=== PATIENT | female | born 1960 | race Caucasian/White ===

== ENCOUNTER 2024-12-14 18:54 | Outpatient (REF) | payer MEDICARE, SELFPAY | END 2024-12-14 18:55 | disposition home or self-care (01) | LOC: HO.HHCLNP 18:54 | PROVIDERS: Visit Provider Family Medicine | DX: Z12.4 Encounter for screening for malignant neoplasm of cervix (principal) | CPT/HCPCS: 87626; 88175 ==

== ENCOUNTER 2024-12-29 14:31 | Outpatient (REF) | payer MEDICARE, SELFPAY ==
--- OUTSIDE RECORDS SUMMARY | 2024-12-29 16:49 | XMS_ITS | Encounter Summary ---
Author Organization [employer] Address [address] 7[address] [place] [address] Care Team Providers Care Welder Repair Name Role Phone Nasreen Salgado MD Primary Care Provider [phone] Encounter Details Date Type Department Care Team (Late st Contact Info) Description 12/15/2024 Orders Only [facility] CHC MED & PEDS [address] [place], [place] [phone] Provider, MD Delmer Social History Tobacco Use Types Packs/Day Years Used Date Smoking Tobacco: Never Smokeless Tobacco: Never Alcohol Use Standard Drinks/Week Comments Defer 0 (1 standard drink = 0.6 oz pur e alcohol) Depression Answer Date Recorded Patient Health Questionnaire-9 Score 22 11/24/2024 Patient Health Questionnaire-9 Score 22 11/24/2024 Last PHQ-9: Questionnaire Data Not on file 0 11/24/2024 Housing Stability Answer Date Recorded What is your housing situation today? I have lori heredia 11/24/[address] you li ve. Do you have problems with any of the following? None of the above 11/24/2024 Food Insecurity Answer Date Recorded Within the past 12 months, y ou worried that your food would run out before you got money to buy more: Never True 11/24/2024 Within the past 12 months,th e food you bought just didn't last and you didn't have enough money to get more: Never True Transportation Answer Date Recorded In the past 12 months, has l ack of transportation kept you from medical appts, meetings, work or from getting things needed for daily living? No 11/24/2024 Utilities Answer Date Recorded In the past 12 months, has t he electric, gas, oil or water company threatened to shut off services in your home? No 11/24/2024 Depression Answer Date Recorded Patient Health Questionnaire-2 Score 6 11/24/2024 Internet Access Answer Date Recorded Internet Access Q1 No 11/24/2024 Internet Access Q2 I do not want or need it 10/28 Comments No Sex and Gender Information Value Date Recorded Sex Assigned at Female 07/30/2024 3:23 PM EDT Legal Sex Female 3:22 PM EDT Gender Identity Female 11/24/2024 9:00 AM EDT Sexual Orientation Straight 11/24/2024 9: 01 AM EDT documented as of this encounter Plan of Treatment Upcoming Encounters Date Type Department Care Team (Late st Contact Info) Description 01/11/2025 10:45 AM EDT Office Visit [facility] CHC MED & PEDS [address] [place] [address] Nasreen Salgado MD [address] [place] [address] documented as of this encounter Procedures Procedure Name Priority Date/Time Associated Diagnosis Comments SURGICAL PATHOLOGY Routine 11/10/2023 9:00 AM EDT documented in this encounter Results * Surgical Pathology (11/10/2023 9:00 AM EDT) us Historical Provider LAB PATHOLOGY ORDERABLES Final Result documented in this encounter Visit Diagnoses Not on filedocumented in this encounter Additional Health Concerns Assessment Noted Time PHQ-9 Depression Total Score: 22 025 9:47 AM EDT documented as of this encounter Care Teams Welder Repair Relationship Specialty Start Date End Date Nasreen Salgado MD [address] [place] [address] PCP - General Family Medicine 11/24/24 documented as of this encounter
--- OUTSIDE RECORDS SUMMARY | 2024-12-29 16:49 | XMS_ITS | Encounter Summary ---
Author Organization [employer] Address [address] 7[address] [place] [address] Care Team Providers Care Retail Loan Originator Name Role Phone Nasreen Salgado MD Primary Care Provider [phone] Reason for Visit * Reason Onset Date Comments Medication Question 12/28/2024 Encounter Details Date Type Department Care Team ([facility] Contact Info) Description 12/28/2024 Telephone C [facility] MED & PEDS [address] [place], [place] [phone] Nasreen Salgado MD [address] [place], [place] [phone] Medication Question Social History Tobacco Use Types Packs/Day Years [...] AM EDT documented as of this encounter Miscellaneous Notes * Telephone Encounter - Nasreen Salgado MD - 12/29/2024 10:01 AM EDT Hydroxyzine 50mg sent Be taken 1/2hr before MRI * Telephone Encounter - Radha Fonseca RN - 12/29/2024 9:22 AM EDT Routing message to provider. * Telephone Encounter - Abby Lieberman - 12/28/2024 4:11 PM EDT Pt states has an MRI appt at [facility] on December 30. Pt requesting meds due to having anxiety in tight inclosed spaces. Pls call pt thanks documented in this encounter Plan of Treatment Upcoming Encounters Date Type Department Care Team (Late st Contact Info) Description 01/11/2025 10:45 AM EDT Office Visit [facility] MED & PEDS [address] [place] [address] Nasreen Salgado MD [address] [place] [address] documented as of this encounter Visit Diagnoses Not on filedocumented in this encounter Additional Health Concerns Assessment Noted Time PHQ-9 Depression Total Score: 22 025 9:47 AM EDT documented as of this encounter Care Teams Retail Loan Originator Relationship Specialty Start Date End Date Nasreen Salgado MD [address] [place] [address] PCP - General Family Medicine 11/24/24 documented as of this encounter
--- OUTSIDE RECORDS SUMMARY | 2024-12-29 16:49 | XMS_ITS | Encounter Summary ---
Author Organization [employer] Address [address] 7[address] [place] [address] Care Team Providers Care Chute Greaser Name Role Phone Nasreen Salgado MD Primary Care Provider [phone] Encounter Details Date Type Department Care Team ([facility] st Contact Info) Description 12/29/2024 Orders Only [facility] CHC MED & PEDS [address] [place], [place] [phone] Nasreen Salgado MD [address] [place] [address] Social History Tobacco Use Types Packs/Day Years Used Date Smoking Tobacco: Never Smokeless Tobacco: Never Alcohol Use Standard Drinks/Week Comments Defer 0 (1 standard drink = 0.6 oz pur e alcohol) Depression Answer Date Recorded Patient Health Questionnaire-9 Score 11/24/2024 Patient Health Questionnaire-9 Score 22 11/24/2024 [...] Description 01/11/2025 10:45 AM EDT Office Visit [facility] CHC MED & PEDS [address] [place] [address] Nasreen Salgado MD [address] [place] [address] documented as of this encounter Visit Diagnoses Not on filedocumented in this encounter Additional Health Concerns Assessment Noted Time PHQ-9 Depression Total Score: 22 025 9:47 AM EDT documented as of this encounter Care Teams Chute Greaser Relationship Specialty Start Date End Date Nasreen Salgado MD [address] [place] [address] PCP - General Family Medicine 11/24/24 documented as of this encounter
--- OUTSIDE RECORDS SUMMARY | 2024-12-29 16:49 | XMS_ITS | Encounter Summary ---
Author Organization [employer] Address [address] 7[address] [place] [address] Care Team Providers Care Sausage Linker Name Role Phone Nasreen Salgado MD Primary Care Provider [phone] Encounter Details Date Type Department Care Team ([facility] st Contact Info) Description 12/24/2024 Telephone C [facility] MED & PEDS [address] [place], [place] [phone] Nasreen Salgado MD [address] [place] [address] Social History Tobacco Use Types Packs/Day Years [...] Description 01/11/2025 10:45 AM EDT Office Visit [facility] CHC MED & PEDS [address] [place] [address] Nasreen Salgado MD [address] [place] [address] documented as of this encounter Visit Diagnoses Not on filedocumented in this encounter Additional Health Concerns Assessment Noted Time PHQ-9 Depression Total Score: 22 025 9:47 AM EDT documented as of this encounter Care Teams Sausage Linker Relationship Specialty Start Date End Date Nasreen Salgado MD [address] [place] [address] PCP - General Family Medicine 11/24/24 documented as of this encounter
--- OUTSIDE RECORDS SUMMARY | 2024-12-29 16:49 | XMS_ITS | Clinical Summary ---
Author Organization [employer] Address [address] [place] [address] 7t [place] [address] Care Team Providers Care Cocktail Server Name Role Phone Nasreen Salgado MD Primary Care Provider Allergies Active Allergy Reactions Criticality Noted Date Comments Codeine Anaphylaxis High 11/24/2024 Medications amLODIPine (Norvasc) 10 MG tablet Take 10 mg by mouth Once per day. Active fluticasone (Flonase) 50 MCG/ACT nasal spray See Instructions, USE 2 SPRAYS IN EACH NOSTRIL DAILY, # 48 mL, 1 Refills, Maintenance, 08/11/24 1:27:00 PM EDT, [facility], 90, USE 2 SPRAYS IN EACH NOSTRIL DAILY, 178, cm, 03/02/24 13:31:00 EST, Height, 119.3, kg, 03/02/24 13:31:00 EST, Dry Weight 08/12/19 25 Active hydroCHLOROthi azide (HYDRODiuril) 25 MG tablet Take 1 tablet by mouth. 08/12/19 25 Active hydrOXYzine pamoate (Vistaril) 25 MG capsule TAKE ONE CAPSULE TWICE A DAY NEEDED FOR ANXIETY. MAY TAKE 2 CAPS AT NIGHT NEEDED FOR INSOMNIA 02/04/20 24 Active loratadine (Claritin) 10 MG tablet Take 10 mg by mouth. 01/17/20 07 Active omeprazole (PriLOSEC) [address] capsule 11/02/19 25 Active simvastatin (Zocor) 40 MG tablet Take 20 mg by mouth. 08/12/19 25 Active venlafaxine XR (Effexor XR) 150 MG 24 hr capsule Take 1 capsule by mouth. 08/12/19 25 Active traZODone (Desyrel) 50 MG tablet TAKE 1 TABLET BY MOUTH AT BEDTIME 90 tablet 1 12/25/19 25 Active hydrOXYzine pamoate (Vistaril) 50 MG capsule Take 1 capsule (50 mg) by mouth every 6 (six) hours if needed for itching for up to 2 days. 4 capsule 12/30/19 25 025 Active traZODone (Desyrel) 50 MG tablet Take 1 tablet (50 mg) by mouth at bedtime. 30 tablet 11/25/19 25 025 Discontinued Active Problems Problem Noted Date Diagnosed Date Cervical cancer screening 12/14/2024 Essential hypertension 11/24/2024 SALLIE (generalized anxiety disorder) 11/24/2024 Dyslipidemia 11/24/2024 Cervical radiculopathy 11/24/2024 Cervical os stenosis 11/24/2024 Hiatal hernia with GERD 11/24/2024 Major depression, recurrent, chronic 11/24/2024 Lumbar degenerative disc disease 11/24/2024 History of diverticulitis 11/24/2024 History of abnormal cervical Papanicolaou smear 11/24/2024 Obstructive sleep apnea syndrome 11/24/2024 Prediabetes 11/24/2024 Severe obesity (BMI 35.0-39.9) with comorbidity 11/24/2024 Mood disorder 11/07/2009 Encounters Date Type Department Care Team Description 12/29/2024 Orders Only [facility] MED & PEDS [address] [place] [id number] Nasreen Salgado MD 12/28/2024 Telephone [facility] MED & PEDS [address] [place] [id number] Nasreen Salgado MD Medication Question 12/24/2024 Telephone [facility] MED & PEDS [address] [place] [id number] Nasreen Salgado MD 12/24/2024 Refill [facility] MED & PEDS [address] [facility] [place] [id number] Nasreen Salgado MD 12/21/2024 Results Follow-Up [facility] MED & PEDS [address] [place] [id number] Michelle Samano MD Pap Smear, HPV High Risk with Reflex to Subtypes 12/15/2024 Orders Only [facility] MED & PEDS [address] [place] [address] Delmer Tobar MD 12/14/2024 11:20 AM EDT Procedure Visit [facility] MED & PEDS [address] [place] [address] Michelle Samano MD Essential hypertension (Primary Dx); Cervical cancer screening; Stress incontinence in female 12/14/2024 Travel 11/24/2024 9:00 AM EDT Office Visit [facility] MED & PEDS [address] [place] [address] Nasreen Salgado MD Essential hypertension (Primary Dx); Obstructive sleep apnea syndrome; Prediabetes; Major depression, recurrent, chronic (CMS/HCC); SALLIE (generalized anxiety disorder); Dyslipidemia; Insomnia, unspecified type; 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; Encounter for screening mammogram for breast cancer; Encounter for immunization 11/24/2024 Travel 11/23/2024 Telephone [facility] MED & PEDS [address] [place] [address] Nancie Lopez MA Chart Prep 11/17/2024 Patient Outreach [facility] [address] [place] [address] Juvencio Dunn MD Pre-visit Planning (Pre visit planning LVM ) from Last 3 Months Immunizations Immunization Administration Dates Next Due Influenza Injectable Quadriv alant Preservative Free IIV4 MDCK 02/09/2023 Influenza, IIV3, injectable 02/09/2023, 0 Td (adult), unspecified 12/10/2000 Tdap 11/24/2024,11/21/2011 Family History Medical History Relation Name Comments Aneurysm Brother Breast cancer Sister Relation Name Status Comments Brother Alive Father Mother Sister Alive Social History Tobacco Use Types Packs/Day Years Used Date Smoking Tobacco: Never Smokeless Tobacco: Never Tobacco Cessation:Counseling Given: Not Answered Alcohol Use Standard Drinks/Week Comments Defer 0 (1 standard drink = 0.6 oz pur e alcohol) Depression Answer Date Recorded Patient Health Questionnaire-9 Score 22 11/24/2024 Patient Health Questionnaire-9 Score 22 11/24/2024 Last PHQ-9: Questionnaire Data Not on file 0 11/24/2024 Housing Stability Answer Date Recorded What is your housing situation today? I have lori sing 11/24/[address] you li [...] Orientation Straight 11/24/2024 9: 01 AM EDT Last Filed Vital Signs Vital Sign Reading Time Taken Comments Blood Pressure 154/90 12/14/2024 11:16 AM EDT Pulse 74 12/14/2024 11:16 AM EDT Temperature 36.9 C (98.4 F) 12/14/2024 11:16 AM EDT Respiratory Rate 20 12/14/2024 11:16 AM EDT Oxygen Saturation 97% 12/14/2024 11:16 AM EDT Inhaled Oxygen Concentration - - Weight 115 kg (253 lb 6.4 oz) 12/14/2024 11:16 A M EDT Height 176 cm (5' 9.29 ) 12/14/2024 11:16 AM EDT Body Mass Index 37.11 12/14/2024 11:16 AM EDT Plan of Treatment Upcoming Encounters Date Type Department Care Team (Late st Contact Info) Description 01/11/2025 10:45 AM EDT Office Visit [facility] MED & PEDS [address] [place] [id number] Nasreen Salgado MD [address] [facility] [place] [id number] Health Maintenance Due Date Last Done Comments CT Colonography 1960 Diabetes: Hemoglobin A1C 1960 FIT DNA/Cologuard 1960 FIT 1960 FOBT 1960 HIV Screening 1960 Lipid Panel 1960 Sigmoidoscopy 1960 Hepatitis C Screening 1978 Mammogram 2000 Pneumococcal Vaccine: 50+ Years (1 of 1 - PCV) 2010 Zoster Vaccines (1 of 2) 2010 Colonoscopy 12/15/2024 Colorectal Cancer Screening 12/15/2024 Colposcopy 12/15/2024 COVID-19 Vaccine (4 - 2024-2 6 season) 2024 02/09/2023, 08/23/2020, 08/02/2020 Influenza Vaccine (#1) 2024 , 02/09/2023, 04/17/2020 Depression Monitoring 05/27/2025 11/24/2024 , 11/24/2024 Alcohol/Substance Use Screening 11/24/2025 11/24/2024 Disability Screening 11/24/2025 11/24/2024 SDOH Screening 11/24/2025 11/24/2024 Tobacco Screening 12/14/2025 12/14/2024 Pap Smear 12/15/2027 12/14/2024 Cervical Cancer Screening 12/14/2029 HPV/Cotest 12/14/2029 12/14/2024 DTaP/Tdap/Td Vaccines (3 - T d or Tdap) 11/24/2034 11/24/2024, 11/21/2011, 12/10/2000 RSV Patients and Patients Aged 60 years or older (1 - 1-dose 75+ series) 07/17/2035 HIB Vaccines Aged Out No longer eligi ble based on patient's age to complete this topic HPV Vaccines Aged Out No longer eligi ble based on patient's age to complete this topic Hepatitis A Vaccines Aged Out No long er eligible based on patient's age to complete this topic Hepatitis B Vaccines Aged Out No long er eligible based on patient's age to complete this topic IPV Vaccines Aged Out No longer eligi ble based on patient's age to complete this topic Meningococcal B Vaccine Aged Out No l onger eligible based on patient's age to complete this topic Meningococcal Vaccine Aged Out No bianca tejinder eligible based on patient's age to complete this topic RSV under 20 months Aged Out No longe r eligible based on patient's age to complete this topic Rotavirus Vaccines Aged Out No longer eligible based on patient's age to complete this topic Procedures Procedure Name Priority Date/Time Associated Diagnosis Comments PAP SMEAR Routine 12/14/2024 1:51 PM EDT Cervical cancer screening HPV DNA, LOW/HIGH RISK Routine 12/14/2024 1:51 PM EDT Cervical cancer screening from Last 3 Months Results * (ABNORMAL) HPV High Risk with Reflex to Subtypes (12/14/2024 1:51 PM EDT) HPV High Risk Positive(A) Negative [facility] HPV Genotype 16 Negative Negative [facility] HPV Genotype 18 Negative Negative [facility] Comment:HPV testing performe d at [facility] (CLIA#[id number]), [address] [place] [address].Testing for HPV was performed using the Phillip ZURI 6800system. The presence of HPV in the female genital tract isassociated with a number of diseases, including cervicalcarcinoma. The HPV DNA high risk pool tests for HPV 31, 33,35, 39, 45, 51, 52, 56, 58, 59, 66 and 68. The testing forHPV 16 and 18 genotypes has also been performed. A positiveresult indicates detection of nucleic acid sequences fromone or more subtypes, whereas a negative result indicatessuch sequences were not detected. Pap Vial 12/14/2024 1:51 PM EDT 12/15/2024 8:45 AM EDT us Michelle Samano MD LAB BLOOD ORDERABLES Final Re sult [facility] [address] [place] [phone] * Pap Smear (12/14/2024 1:51 PM EDT) Swab Cervical swab / Unknown 12/14/2024 1:51 PM EDT 12/15/2024 8:45 AM EDT Narrative [facility] - 12/20/2024 5:32 PM EDT ----- ------- Name: Kelley Ham Age/Sex: 64/F : 1960 Unit#: [id number] Attend Dr: Michelle Samano MD Re12/14/24 Status: DEP REF Location: HO.HHCLNP Disch: ----- ------- SPEC : [id number] RECD: 12/15/24 STATUS: NARENDRA STRATTON NUM: [id number] FELICITA: 12/14/24-[address] [facility] [address]: Michelle Samano MD ENTERED: 12/15/24 SP TYPE: Pap Smr OT DR: ORDERED: Pap Smear, PAP path review Interpretation ABNORMAL PAP TEST. Satisfactory for evaluation, with atypical squamous cells of undetermined significance (ASC-US). Atrophic. HPV High Risk: Positive HPV Genotyping 16: Negative HPV Genotyping 18: Negative Clinical Information LMP: Postmenopausal Previous PAP test: 07/23/2023, WNL Material Received ThinPrep-Cervical PAP Disclaimer As of February 18, 2024, the technical services to include automated prescreening performed by the ThinPrep Imaging System, PAP screening and HPV testing will be performed at [facility] (CLIA #[id number]), [address] [place] [address]. Testing for HPV was performed using the [employer] CornerBlue0 system. The presence of HPV in the female genital tract is associated with a number of diseases, including cervical carcinoma. The HPV DNA high risk pool tests for HPV 31, 33, 35, 39, 45, 51, 52, 56, 58, 59, 66 and 68. The testing for HPV 16 and 18 genotypes has also been performed. A positive result indicates detection of nucleic acid sequences from one or more subtypes, whereas a negative result indicates such sequences were not detected. All professional services are performed by [facility] ([address] [place] [address]; ; CLIA #[id number]). The PAP Test is a screening procedure with the inherent possibility of both false negative and false positive results. Results should be interpreted in the context of historic and current clinical findings. Reliability of the PAP Test is enhanced by performing the test on a regular repetitive basis. CONTINUED ON NEXT PAGE ----- ------- Name: Kelley Ham Age/Sex: 64/F : 1960 Unit#: [id number] Attend Dr: Michelle Samano MD Re12/14/24 Status: DEP REF Location: [facility] Disch: ----- ------- SPEC : [id number] RECD: 12/15/24 STATUS: NARENDRA STRATTON NUM: [id number] FELICITA: 12/14/24-[address] [facility] [address]: Michelle Samano MD ENTERED: 12/15/24 SP TYPE: Pap Smr HR DR: ORDERED: Pap Smear, PAP path review ----- ------- Signed (signature on file) Margo Romero MD 12/20/24 1732 ----- ------- END OF REPORT us Michelle Samano MD LAB CYTOLOGY ORDERABLES Final Result [facility] [address] [place] [phone] from Last 3 Months Insurance [facility] MEDICARE ADVANTAGE Care Teams Cocktail Server Relationship Specialty Start Date End Date Nasreen Salgado MD [address] [place] [address] [place] [address] PCP - General Family Medicine 11/24/24
--- OUTSIDE RECORDS SUMMARY | 2024-12-29 16:49 | XMS_ITS | Encounter Summary ---
Author Organization [employer] Address [address] [place] [address] Care Team Providers Care Modeling And Simulation Analyst Name Role Phone Nasreen Salgado MD Primary Care Provider [phone] Reason for Visit * Reason Comments Med Change Request Encounter Details Date Type Department Care Team ([facility] Contact Info) Description 12/24/2024 Refill C [facility]S [address] [place], [place] [phone] Nasreen Salgado MD [address] [place], [place] [phone] Social History Tobacco Use Types Packs/Day Years [...] Description 01/11/2025 10:45 AM EDT Office Visit [facility] MED & PEDS [address] [place] [address] Nasreen Salgado MD [address] [place] [address] documented as of this encounter Visit Diagnoses Not on filedocumented in this encounter Additional Health Concerns Assessment Noted Time PHQ-9 Depression Total Score: 22 025 9:47 AM EDT documented as of this encounter Care Teams Modeling And Simulation Analyst Relationship Specialty Start Date End Date Nasreen Salgado MD [address] [place] [address] PCP - General Family Medicine 11/24/24 documented as of this encounter
--- OUTSIDE RECORDS SUMMARY | 2024-12-29 16:50 | XMS_ITS | Clinical Summary ---
Author Organization [facility] Address [address] [place] [address] Phone Care Team Providers Care Fish Trapper Name Role Phone Ivana George MD Primary Care Provider Allergies Active Allergy Reactions Criticality Noted Date Comments Codeine Hives 05/31/2024 Medications No known medications Active Problems No known active problems Medical History Medical History Date Comments Hypertension Asthma Social History Tobacco Use Types Packs/Day Years Used Date Smoking Tobacco: Never Tobacco Cessation:Counseling Given: Not Answered Comments Unknown Sex and Gender Information Value Date Recorded Sex Assigned at Female 08/04/2024 8:57 PM EDT Legal Sex Female 8:28 PM EST Gender Identity Female 08/04/2024 8:57 PM EDT Sexual Orientation Straight 08/04/2024 8: 57 PM EDT Obstetrics History Last Filed Vital Signs Vital Sign Reading Time Taken Comments Blood Pressure 132/93 08/04/2024 6:38 PM EDT Pulse 103 08/04/2024 6:38 PM EDT Temperature 37.2 C (99 F) 08/04/2024 6:38 PM EDT Respiratory Rate 18 08/04/2024 6:38 PM EDT Oxygen Saturation 96% 08/04/2024 6:38 PM EDT Inhaled Oxygen Concentration - - Weight 110 kg (243 lb) 08/04/2024 6:38 PM EDT Height 182.9 cm (6') 08/04/2024 6:38 PM EDT Body Mass Index 32.96 08/04/2024 6:38 PM EDT Plan of Treatment Upcoming Encounters Date Type Department Care Team (Late st Contact Info) Description 12/31/2024 12:00 PM EDT Appointment [facility] MRI [address] [place] [address] Health Maintenance Due Date Last Done Comments Breast Cancer Screening 1960 Cervical Cancer Screening: P ap Smear 1981 Pneumococcal Vaccine: 50+ Years (1 of 1 - PCV) 2010 Zoster Vaccines (1 of 2) 2010 DTaP,Tdap,and Td Vaccines (3 - Td or Tdap) 11/20/2021 11/21/2011, 12/10/2000 Cholesterol Screening (Lipid Panel) 03/30/2022 Colorectal Cancer Screening: Colonoscopy 03/30/2022 HIV Screening 03/30/2022 Hepatitis C Screening 03/30/2022 Social Influencers of Health Screening 03/30/2022 Depression Screening 04/28/2024 COVID-19 Vaccine (4 - 2024-2 6 season) 2024 02/09/2023, 08/23/2020, 08/02/2020 Influenza Vaccine (#1) 2024 , 04/17/2020 Hypertension/CHF/CAD Annual BMP Blood Test 05/31/2025 05/31/2024 RSV Immunization Adult Patients (1 - 1-dose 75+ series) 07/17/2035 HIB [...] on patient's age to complete this topic MMR Vaccines Aged Out No longer eligi ble based on patient's age to complete this topic Meningococcal ACWY Vaccine Aged Out N o longer eligible based on patient's age to complete this topic Meningococcal B Vaccine Aged Out No l onger eligible based on patient's age to complete this topic RSV Immunization Patients Under 20 months Aged Out No longer eligible b ased on patient's age to complete this topic Varicella Vaccines Aged Out No longer eligible based on patient's age to complete this topic Procedures Procedure Name Priority Date/Time Associated Diagnosis Comments BASIC METABOLIC PANEL STAT 05/31/2024 11:15 PM EST from Last 3 Months or Most Recently Relevant to Health Maintenance Results * (ABNORMAL) Basic metabolic panel (05/31/2024 11:15 PM EST) Sodium 136 133 - 145 mmol/L LAB CHEMISTRY METHOD 06/01/2024 1:01 AM [facility] Potassium 3.0(L) 3.5 - 5.5 mmol/L LAB CHEMISTRY METHOD 06/01/2024 1:01 AM [facility] Chloride 99 96 - 110 mmol/L LAB CHEMISTRY METHOD 06/01/2024 1:01 AM [facility] CO2 27 21 - 32 mmol/L LAB CHEMISTRY METHOD 06/01/2024 1:01 AM [facility] Anion Gap 10 3 - 11 LAB CHEMISTRY METHOD 06/01/2024 1:01 AM [facility] Glucose 82 70 - 100 mg/dL LAB CHEMISTRY METHOD 06/01/2024 1:01 AM [facility] BUN 24 5 - 25 mg/dL LAB CHEMISTRY METHOD 06/01/2024 1:01 AM [facility] Creatinine 1.86(H) 0.50 - 1.10 mg/dL LAB CHEMISTRY METHOD 06/01/2024 1:01 AM [facility] eGFR 30(L) >=60 mL/min/1. 73m2 LAB CHEMISTRY METHOD 06/01/2024 1:01 AM [facility] Comment:Calculation based on the Chronic Kidney Disease Epidemiology Collaboration (CKD-EPI) equation refit without adjustment for race. BUN/Creatinine Ratio 12.9 LAB CHEMISTRY METHOD 06/01/2024 1:01 AM [facility] Calcium 9.7 8.5 - 10.5 mg/dL LAB CHEMISTRY METHOD 06/01/2024 1:01 AM [facility] Blood Venous blood specimen / Unknown Venipuncture / Unknown 05/31/2024 11:15 PM EST 06/01/2024 12:25 AM EST [facility] Sue Gutierrez MD LAB BLOOD ORDERABLES [facility] [address] [place] [address], from Last 3 Months or Most Recently Relevant to Health Maintenance Insurance MEDICAID - [place] [facility] [place]EL [id number] Care Teams Fish Trapper Relationship Specialty Start Date End Date Ivana George MD [address] [place] [phone] PCP - General 05/22/22
[2024-12-29 18:00] LABS: Hemoglobin A1C 121.3176 umol/L; Total Hemoglobin (HGBA1C) 3142.9806 umol/L
[2024-12-29 18:05] LABS: Alanine Aminotransferase 15 U/L (0-31); Albumin Level 4.4 g/dL (3.5-5.0); Alkaline Phosphatase 98 U/L (39-117); Anion Gap 15 (12-20); Aspartate Amino Transferase 30 U/L (5-31); Blood Urea Nitrogen 21 mg/dL (9-16); Calcium 9.6 mg/dL (8.4-10.2); Carbon Dioxide 29 mmol/L (22-29); Chloride 100 mmol/L (96-108); Cholesterol 243 mg/dL (<200); Estimated Glomerular Filt Rate 52; HDL Cholesterol 64 mg/dL (>40); Potassium 3.4 mmol/L (3.3-5.1); Sodium 141 mmol/L (135-145); Total Protein 8.0 g/dL (6.5-8.0); Triglycerides 137 mg/dL (<150)
== END 2024-12-29 14:32 | disposition home or self-care (01) ==
LOC: HO.CHCLDS 14:31
PROVIDERS: Visit Provider Student in an Organized Health Care Education/Training Program
DX: I10 Essential (primary) hypertension (principal); R73.03 Prediabetes
CPT/HCPCS: 36415; 80048; 80061; 80076; 83036

== ENCOUNTER 2025-01-24 13:52 | Outpatient (REF) | payer MEDICARE, SELFPAY ==
--- NOTE | ~2025-01-24 | MM_ITS ---
EXAMINATION: MM SCREENING DIGITAL BREAST TOMOSYNTHESIS, BILATERAL CLINICAL INFORMATION: Screening. Asymptomatic. COMPARISON: Mammography: No prior imaging available at this time for comparison. TECHNIQUE: Digital breast mammography with tomosynthesis is performed in both the craniocaudal and mediolateral oblique views along with computer-aided detection (CAD). FINDINGS: There are scattered areas of fibroglandular density. There are no significant masses, abnormal calcifications, or other abnormalities. MM/MM tomosynthesis screening BI IMPRESSION: No mammographic evidence of malignancy. ASSESSMENT: BI-RADS Category 1: Negative RECOMMENDATION: Routine annual mammography screening. 1 year F/U This examination should not preclude the clinical evaluation of a suspicious palpable abnormality. This patient's information was entered into a reminder system with a target due date for their next mammogram. Electronically signed by: Kamryn Mora DO 01/25/2025 02:25 PM EDT
--- OUTSIDE RECORDS SUMMARY | 2025-01-24 15:34 | XMS_ITS | Clinical Summary ---
Author Organization [facility] Address [address] [place] [address] Phone Care Team Providers Care Staffing Recruiter Name Role Phone Ivana George MD Primary Care Provider Allergies Active Allergy Reactions Criticality Noted Date Comments Codeine Hives 05/31/2024 Medications No known medications Active Problems No known active problems Encounters Date Type Department Care Team Description 01/04/2025 5:49 PM EDT - 01/04/2025 11:59 PM EDT Hospital Encounter [facility] MRI [address] [place] [address] Headache Discharge Disposition: Home or Self Care from Last 3 Months Medical History Medical History Date Comments Hypertension [...] 08/04/2024 6:38 PM EDT Plan of Treatment Health Maintenance Due Date Last Done Comments Breast Cancer Screening 1960 Pneumococcal Vaccine: 50+ Years (1 of 1 - PCV) 2010 Zoster Vaccines (1 of 2) 2010 Colorectal Cancer Screening: Colonoscopy 03/30/2022 HIV Screening 03/30/2022 Hepatitis C Screening 03/30/2022 Medicare Annual Wellness Visit 03/30/2022 Social Influencers of Health Screening 03/30/2022 Depression Screening 04/28/2024 COVID-19 Vaccine (4 - 2024-2 6 season) 2024 02/09/2023, 08/23/2020, 08/02/2020 Influenza Vaccine (#1) 2024 , 04/17/2020 Hypertension/CHF/CAD Annual BMP Blood Test 12/29/2025 12/29/2024, 05/31/2024 Cervical Cancer Screening: P ap Smear 12/15/2027 12/14/2024 Cholesterol Screening (Lipid Panel) 12/29/2029 12/29/2024 DTaP,Tdap,and Td Vaccines (4 - Td or Tdap) 11/24/2034 11/24/2024, 11/21/2011, 12/10/2000 RSV Immunization Adult Patients (1 - 1-dose [...] Procedure Name Priority Date/Time Associated Diagnosis Comments MR BRAIN WO CONTRAST Routine 01/04/2025 6:34 PM EDT Headache BASIC METABOLIC PANEL STAT 05/31/2024 11:15 PM EST from Last 3 Months or Most Recently Relevant to Health Maintenance Results * MR Brain wo Contrast (01/04/2025 6:34 PM EDT) Anatomical Region Laterality Modality Head and Neck Magnetic Resonan ce 01/05/2025 1:10 PM EDT Impressions 01/05/2025 1:48 PM EDT 1. No acute intracranial findings. 2. Patchy T2 hyperintensities suggestive of mild-moderate chronic microvascular ischemic disease in the supratentorial white matter. 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 -------- FINAL REPORT -------- Dictated By: Ambrocio Champion Dictated Date: 01/05/2025 13:10 ET Assigned Physician: Ambrocio Champion Reviewed and Electronically Signed By: Ambrocio Champion Signed Date: 01/05/2025 13:48 ET Workstation ID: [id number] Transcribed By: Self Edit Transcribed Date: 01/05/2025 13:10 ET Narrative 01/05/2025 1:48 PM EDT PROCEDURE: Noncontrast MRI of the brain. HISTORY: fuentes's. COMPARISON: None. TECHNIQUE: Multiplanar multisequence MRI of the brain without intravenous contrast administration. FINDINGS: BRAIN: No diffusion abnormality. No mass or extra-axial fluid collection. No hydrocephalus. The major intracranial flow voids are preserved. Age commensurate ventricles and sulci. Small linear foci of post infarct encephalomalacia in both cerebellar hemispheres. Patchy nonspecific T2 hyperintensities in the supratentorial white matter, most likely sequela of mild-moderate chronic microvascular ischemic disease in a patient of this age. ORBITS: Lens implants. SINUSES/MASTOIDS: Trace left mastoid fluid. CALVARIUM: Normal. OTHER: The visualized skull base soft tissues are normal. Mild degenerative changes of the visualized cervical spine. Procedure Note Ambrocio Champion MD - 01/05/2025 PROCEDURE: Noncontrast MRI of the brain. HISTORY: fuentes's. COMPARISON: None. TECHNIQUE: Multiplanar multisequence MRI of the brain without intravenouscontrast administration. FINDINGS: BRAIN: No diffusion abnormality. No mass or extra-axial fluid collection.No hydrocephalus. The major intracranial flow voids are preserved. Agecommensurate ventricles and sulci. Small linear foci of post infarctencephalomalacia in both cerebellar hemispheres. Patchy nonspecific [id number] in the supratentorial white matter, most likely sequelaof mild-moderate chronic microvascular ischemic disease in a patient ofthis age. ORBITS: Lens implants. SINUSES/MASTOIDS: Trace left mastoid fluid. CALVARIUM: Normal. OTHER: The visualized skull base soft tissues are normal. Milddegenerative changes of the visualized cervical spine. IMPRESSION: 1. No acute intracranial findings. 2. Patchy T2 hyperintensities suggestive of mild-moderate chronicmicrovascular ischemic disease in the supratentorial white matter. Smallfoci of post infarct encephalomalacia in both cerebellar hemispheres. -------- FINAL REPORT -------- Dictated By: Ambrocio Champion Dictated Date: 01/05/2025 13:10 ET Assigned Physician: Ambrocio Champion Reviewed and Electronically Signed By: Ambrocio Champion Signed Date: 01/05/2025 13:48 ET Workstation ID: [id number] Transcribed By: Self Edit Transcribed Date: 01/05/2025 13:10 ET Nasreen Salgado MD [facility] MRI PROCEDURES Final Result * (ABNORMAL) Basic metabolic panel (05/31/2024 11:15 PM EST) Sodium 136 133 - 145 mmol/L LAB CHEMISTRY METHOD 06/01/2024 1:01 AM EST [facility] Potassium 3.0(L) 3.5 - 5.5 mmol/L LAB CHEMISTRY METHOD 06/01/2024 1:01 AM [facility] Chloride 99 96 - 110 mmol/L LAB CHEMISTRY METHOD 06/01/2024 1:01 AM [facility] CO2 27 21 - 32 mmol/L LAB CHEMISTRY METHOD 06/01/2024 1:01 AM [facility] Anion Gap 10 3 - 11 LAB CHEMISTRY METHOD 06/01/2024 1:01 AM [facility] Glucose 82 70 - 100 mg/dL LAB CHEMISTRY METHOD 06/01/2024 1:01 AM [facility] BUN 24 5 - 25 mg/dL LAB CHEMISTRY METHOD 06/01/2024 1:01 AM [facility] Creatinine 1.86(H) 0.50 - 1.10 mg/dL LAB CHEMISTRY METHOD 06/01/2024 1:01 AM [facility] eGFR 30(L) >=60 mL/min/1. 73m2 LAB CHEMISTRY METHOD 06/01/2024 1:01 AM [facility] Comment:Calculation based on the Chronic Kidney Disease Epidemiology Collaboration (CKD-EPI) equation refit without adjustment for race. BUN/Creatinine Ratio 12.9 LAB CHEMISTRY METHOD 06/01/2024 1:01 AM [facility] Calcium 9.7 8.5 - 10.5 mg/dL LAB CHEMISTRY METHOD 06/01/2024 1:01 AM [facility] Blood Venous blood specimen / Unknown Venipuncture / Unknown 05/31/2024 11:15 PM EST 06/01/2024 12:25 AM EST us Francisco Javier Gutierrez MD LAB BLOOD ORDERABLES Final Resu lt [facility] [address] [place] [address], [place] [phone] from Last 3 Months or Most Recently Relevant to Health Maintenance Insurance MEDICAID - [place] [employer] MEDICARE Care Teams Staffing Recruiter Relationship Specialty Start Date End Date Ivana George MD [address] [place] [phone] PCP - General 05/22/22
--- OUTSIDE RECORDS SUMMARY | 2025-01-24 15:34 | XMS_ITS | Encounter Summary ---
Author Organization [employer] Address [address] [place] [address] Care Team Providers Care Professor Of Spanish Name Role Phone Nasreen Salgado MD Primary Care Provider [phone] Encounter Details Date Type Department Care Team (Latest Contact Info) Description 01/24/2025 Travel Social History Tobacco Use Types Packs/Day Years [...] is your housing situation today? I have loriallyssa heredia 11/24/[address] you [...] Care Team (Late st Contact Info) Description 01/27/2025 11:30 AM EDT Office Visit [facility] [address] [place] [address] Nasreen Salgado MD [address] [place] [address] documented as of this encounter Visit Diagnoses Not on filedocumented in this encounter Additional Health Concerns Assessment Noted Time PHQ-9 Depression Total Score: 22 11/24/ 025 9:47 AM EDT documented as of this encounter Care Teams Professor Of Spanish Relationship Specialty Start Date End Date Nasreen Salgado MD [address] [place] [address] PCP - General Family Medicine 11/24/24 documented as of this encounter
--- OUTSIDE RECORDS SUMMARY | 2025-01-24 15:34 | XMS_ITS | Encounter Summary ---
Author Organization [employer] Address [address] [place] [address] [address] [place] [address] Care Team Providers Care Digital Product Manager Name Role Phone Nasreen Salgado MD Primary Care Provider Reason for Visit * Reason Onset Date Comments Med Refill 01/06/2025 Encounter Details Date Type Department Care Team ([facility] Contact Info) Description 01/06/2025 Refill [facility] [address] [place] [address] Nasreen Salgado MD [address] [place] [address] Social History Tobacco Use Types Packs/Day Years [...] Upcoming Encounters Date Type Department Care Team ([facility] st Contact Info) Description 01/27/2025 11:30 AM EDT Office Visit [facility] [address] [place] [address] Nasreen Salgado MD [address] [place] [address] documented as of this encounter Visit Diagnoses Not on filedocumented in this encounter Additional Health Concerns Assessment Noted Time PHQ-9 Depression Total Score: 22 025 9:47 AM EDT documented as of this encounter Care Teams Digital Product Manager Relationship Specialty Start Date End Date Nasreen Salgado MD [address] [place] [address] PCP - General Family Medicine 11/24/24 documented as of this encounter
--- OUTSIDE RECORDS SUMMARY | 2025-01-24 15:34 | XMS_ITS | Encounter Summary ---
Author Organization [employer] Address [address] [place] [address] Care Team Providers Care Structural Analysis Engineer Name Role Phone Nasreen Salgado MD Primary Care Provider [phone] Reason for Visit * Reason Onset Date Comments Appointment 01/21/2025 Encounter Details Date Type Department Care Team ([facility] st Contact Info) Description 01/21/2025 Telephone [facility] [address] [place] [address] Nasreen Salgado MD [address] [place], [place] [phone] Appointment Social History Tobacco Use Types Packs/Day Years [...] encounter Miscellaneous Notes * Telephone Encounter - Vin Waite - 01/21/2025 9:13 AM EDT Pcp called out patient aware and informed patient nuclear medical technologist will follow up with call to reschedule appointment. documented in this encounter Plan of Treatment Upcoming Encounters Date Type Department Care Team (Late st Contact Info) Description 01/27/2025 11:30 AM EDT Office Visit [facility] [address] [place] [address] Nasreen Salgado MD [address] [place] [address] documented as of this encounter Visit Diagnoses Not on filedocumented in this encounter Additional Health Concerns Assessment Noted Time PHQ-9 Depression Total Score: 22 025 9:47 AM EDT documented as of this encounter Care Teams Structural Analysis Engineer Relationship Specialty Start Date End Date Nasreen Salgado MD [address] [place] [address] PCP - General Family Medicine 11/24/24 documented as of this encounter
--- OUTSIDE RECORDS SUMMARY | 2025-01-24 15:34 | XMS_ITS | Clinical Summary ---
Author Organization [employer] Address [address] [place] [address] 7[address] [place] [address] Care Team Providers Care Utility Bill Collector Name Role Phone Nasreen Salgado MD Primary Care Provider [phone] Allergies Active Allergy Reactions Criticality Noted Date Comments Codeine Anaphylaxis High 11/24/2024 Medications amLODIPine (Norvasc) 10 MG tablet Take 10 mg by mouth Once per day. Active fluticasone (Flonase) 50 MCG/ACT nasal spray See Instructions, USE 2 SPRAYS IN EACH NOSTRIL DAILY, # 48 mL, 1 Refills, Maintenance, 08/11/24 1:27:00 PM EDT, [facility], 90, USE 2 SPRAYS IN EACH NOSTRIL DAILY, 178, cm, 03/02/24 13:31:00 EST, Height, 119.3, kg, 03/02/24 13:31:00 EST, Dry Weight 5 Active hydroCHLOROthia zide (HYDRODiuril) 25 MG tablet Take 1 tablet by mouth. 5 Active hydrOXYzine pamoate (Vistaril) 25 MG capsule TAKE ONE CAPSULE TWICE A DAY NEEDED FOR ANXIETY. MAY TAKE 2 CAPS AT NIGHT NEEDED FOR INSOMNIA 4 Active loratadine (Claritin) 10 MG tablet Take 10 mg by mouth. 7 Active omeprazole (PriLOSEC) [address] capsule 5 Active simvastatin (Zocor) 40 MG tablet Take 20 mg by mouth. 5 Active venlafaxine XR (Effexor XR) 150 MG 24 hr capsule Take 1 capsule by mouth. 5 Active traZODone (Desyrel) 50 MG tablet TAKE 1 TABLET BY MOUTH AT BEDTIME 90 tablet 1 5 Active hydrOXYzine pamoate (Vistaril) 50 MG capsule Take 1 capsule (50 mg) by mouth every 6 (six) hours if needed for itching for up to 2 days. 4 capsule 5 Active Active Problems Problem Noted Date Diagnosed Date [...] 11/24/2024 Severe obesity (BMI 35.0-39.9) with comorbidity ([facility]) 11/24/2024 Mood disorder 11/07/2009 Encounters Date Type Department Care Team Description 01/24/2025 Travel 01/21/2025 Telephone [facility] [address] [place] [address] Nasreen Salgado MD Appointment 01/10/2025 Telephone [facility] [address] [place] [address] Nasreen Salgado MD Chart Prep 01/06/2025 Refill [facility] [address] [place] [address] Nasreen Salgado MD 01/06/2025 Results Follow-Up [facility] [address] [place] [address] Nasreen Salgado MD MR Brain w/o Contrast 01/06/2025 Orders Only [facility] [address] [place] [address] Nasreen Salgado MD 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 (Primary Dx) 12/29/2024 Orders Only [facility] [address] [place] [address] Nasreen Salgado MD 12/28/2024 Telephone [facility] [address] [place] [address] Nasreen Salgado MD Medication Question 12/24/2024 Telephone [facility] [address] [place] [address] Nasreen Salgado MD 12/24/2024 Refill [facility] [address] [place] [address] Nasreen Salgado MD 12/21/2024 Results Follow-Up [facility] [address] [place] [address] Michelle Samano MD Pap Smear, HPV High Risk with Reflex to Subtypes 12/15/2024 Orders Only [facility] [address] [place] [address] Delmer Tobar MD 12/14/2024 11:20 AM EDT Procedure Visit [facility] [address] [place] [address] Michelle Samano MD Essential hypertension (Primary Dx); Cervical cancer screening; Stress incontinence in female 12/14/2024 Travel 11/24/2024 9:00 AM EDT Office Visit [facility] [address] [place] [address] Nasreen Salgado MD Essential hypertension (Primary Dx); Obstructive sleep apnea syndrome; Prediabetes; Major depression, recurrent, chronic (CMS/HCC); SALLIE (generalized anxiety disorder); Dyslipidemia; Insomnia, unspecified type; 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; Encounter for screening mammogram for breast cancer; Encounter for immunization 11/24/2024 Travel 11/23/2024 Telephone [facility] [address] [place] [address] Nancie Lopez MA Chart Prep 11/17/2024 Patient Outreach [facility] [address] [place], [place] [phone] Juvencio Dunn MD Pre-visit Planning (Pre visit [...] Upcoming Encounters Date Type Department Care Team ([facility] st Contact Info) Description 01/27/2025 11:30 AM EDT Office Visit [facility] [address] [place] [address] Nasreen Salgado MD [address] [place] [address] Health Maintenance Due Date Last Done Comments CT Colonography 1960 FIT DNA/Cologuard 1960 FIT 1960 FOBT 1960 HIV Screening 1960 Sigmoidoscopy 1960 Hepatitis C Screening 1978 Mammogram 2000 Pneumococcal Vaccine: 50+ Years (1 of 1 - PCV) 2010 Zoster Vaccines (1 of 2) 2010 Colonoscopy 12/15/2024 Colorectal Cancer Screening 12/15/2024 Colposcopy 12/15/2024 COVID-19 Vaccine (4 - 2024-2 6 season) 2024 02/09/2023, 08/23/2020, 08/02/2020 Influenza Vaccine (#1) 2024 , 02/09/2023, 04/17/2020 Depression Monitoring 05/27/2025 11/24/2024 , 11/24/2024 Alcohol/Substance Use Screening 11/24/2025 11/24/2024 SDOH Screening 11/24/2025 11/24/2024 Tobacco Screening 12/14/2025 12/14/2024 Diabetes: Hemoglobin A1C 12/29/2025 12/29/2024 Disability Screening 01/24/2026 01/24/2025 Pap Smear 12/15/2027 12/14/2024 Cervical Cancer Screening 12/14/2029 HPV/Cotest 12/14/2029 12/14/2024 Lipid Panel 12/29/2029 12/29/2024 DTaP/Tdap/Td Vaccines (3 - T d or [...] Comments MR BRAIN WO CONTRAST Routine 01/04/2025 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 HEMOGLOBIN A1C Routine 12/29/2024 2:33 PM EDT Prediabetes LIPID PANEL, STANDARD Routine 12/29/2024 2:33 PM EDT Essential hypertension HEPATIC FUNCTION PANEL Routine 12/29/2024 2:33 PM EDT Essential hypertension BASIC METABOLIC PANEL Routine 12/29/2024 2:33 PM EDT Essential hypertension PAP SMEAR Routine 12/14/2024 1:51 PM EDT Cervical cancer screening HPV DNA, LOW/HIGH RISK Routine 12/14/2024 1:51 PM EDT Cervical cancer screening from Last 3 Months Results * MR Brain w/o Contrast (01/04/2025) Anatomical Region Laterality Modality Brain Magnetic Resonan ce Nasreen Salgado MD IMG MRI PROCEDURES Final Result * Hemoglobin A1c (12/29/2024 2:33 PM EDT) Hemoglobin A1c 5.7 <6.0 % [facility] Comment:Hemoglobin A1C Refer ence Range Adults: 4.8 - 6.0 % Non diabetic: < 6.0 % Goal: < 7.0 %Additional Action Suggested: > 8.0 %Note: Hemoglobin A1c results are invalid for patients with abnormal amounts of HbF. Blood transfusions may impact the HbA1c concentration in the patient sample. Estimated Average Glucose 117 mg/dL [facility] Comment:eAG = Estimated ave rage glucose which is %A1C expressed asaverage glucose, using the formula of the [id number] Glucose study (ADAG), Diabetes Care, Vol.31,#8,Nov. 2007 Blood Venous blood specimen / Unknown 12/29/2024 2:33 PM EDT 12/29/2024 5:36 PM EDT Nasreen Salgado MD LAB BLOOD ORDERABLES Final Resul t [facility] [address] [place] [phone] * Hepatic Function Panel (12/29/2024 2:33 PM EDT) Bilirubin, Total 0.6 0.0 - 1.0 mg/dL [facility] Bilirubin, Direct 0.2 0.0 - 0.5 mg/dL [facility] Aspartate Amino Transferase 30 5 - 31 U/L [facility] Alanine Aminotransferase 15 0 - 31 U/L [facility] Total Protein 8.0 6.5 - 8.0 g/dL [facility] Albumin Level 4.4 3.5 - 5.0 g/dL [facility] Alkaline Phosphatase 98 39 - 117 U/L [facility] Blood Venous blood specimen / Unknown 12/29/2024 2:33 PM EDT 12/29/2024 5:36 PM EDT Nasreen Salgado MD LAB BLOOD ORDERABLES Final Resul t Performing Organization Address City/[facility] Co de Phone Number [facility] [address] [place] [address] [phone] * (ABNORMAL) Lipid Panel, Standard (12/29/2024 2:33 PM EDT) Triglycerides 137 <150 mg/dL [facility] Comment:Desirable Triglyceri de: less than 150 mg/dLBorderline High Triglyceride 150-199 mg/dLHigh Triglyceride: 200-499 mg/dLVery High Triglyceride: greater than or equal to 5OO mg/dL Cholesterol 243(H) <200 mg/dL [facility] Comment:Desirable Cholestero l: less than 200 mg/dLBorderline High Cholesterol: 200-239 mg/dLHigh Cholesterol: greater than 239 mg/dL LDL Cholesterol Calculated 152(H) <100 mg/dL [facility] Comment:Desirable LDL: less than 100 mg/dLNear Optimal/Above Optimal LDL: 110- 129 mg/dLBorderline High LDL: 130-159 mg/dLHigh LDL: 160-189 mg/dLVery High LDL: greater than or equal to 190 mg/dL HDL Cholesterol 64 >40 mg/dL [facility] Comment:Desirable HDL: great er than 40 mg/dL Note: This HDL assay may give artificially low results in patients with liver disease. Blood Venous blood specimen / Unknown 12/29/2024 2:33 PM EDT 12/29/2024 5:36 PM EDT Nasreen Salgado MD LAB BLOOD ORDERABLES Final Resul t Performing Organization Address City/State/[facility] Co de Phone Number [facility] [address] [place] [phone] * (ABNORMAL) Basic Metabolic Panel (12/29/2024 2:33 PM EDT) Sodium 141 135 - 145 mmol/L [facility] Potassium 3.4 3.3 - 5.1 mmol/L [facility] Chloride 100 96 - 108 mmol/L [facility] Carbon Dioxide 29 22 - 29 mmol/L [facility] Anion Gap 15 12 - 20 [facility] Urea Nitrogen (BUN) 21(H) 9 - 16 mg/dL [facility] Creatinine, Serum 1.07 0.5 - 1.4 mg/dL [facility] Estimated Glomerular Filt Rate 52 [facility] Comment:Chronic Kidney Disea se: Estimated GFR < 60 mL/min/1.19v2Vzftgx Kidney Disease: Estimated GFR < 15 mL/min/1.73m2 Glucose 119(H) 60 - 115 mg/dL [facility] Calcium 9.6 8.4 - 10.2 mg/dL [facility] Blood Venous blood specimen / Unknown 12/29/2024 2:33 PM EDT 12/29/2024 5:36 PM EDT us Nasreen Salgado MD LAB BLOOD ORDERABLES Final Resul t Performing Organization Address [facility] Co de Phone Number [facility] [address] [place] [phone] [phone] * (ABNORMAL) HPV High Risk with Reflex to Subtypes (12/14/2024 1:51 PM EDT) HPV High Risk Positive(A) Negative [facility] HPV Genotype 16 Negative Negative [facility] HPV Genotype 18 Negative Negative [facility] Comment:HPV testing performe d at [facility] (CLIA#[id number]), [address] [place] [address].Testing for HPV was performed using the Phillip [...] MD LAB BLOOD ORDERABLES Final Re sult [facility] [address] [place] [phone] * Pap Smear (12/14/2024 1:51 PM EDT) Swab Cervical swab / Unknown 12/14/2024 1:51 PM EDT 12/15/2024 8:45 AM EDT Narrative [facility] - 12/20/2024 5:32 PM EDT ----- ------- Name: Kelley Ham Age/Sex: 64/F : 1960 Unit#: [id number] Attend Dr: Michelle Samano MD Re12/14/24 Status: DEP REF Location: HO.HHCLNP Disch: ----- ------- SPEC : [id number] RECD: 12/15/24 STATUS: NARENDRA STRATTON NUM: [id number] FELICITA: 12/14/24[address] [facility] DR: Michelle Samano MD ENTERED: 12/15/24 SP [...] and HPV testing will be performed at [facility] (CLIA #[id number]), [address] [place] [address]. Testing for HPV was performed using the Phillip ZURI [id number] system. The presence of HPV in the [...] detected. All professional services are performed by [facility] ([address] [place] [address], [place] [address]; ; CLIA #[id number]). The PAP Test is a screening procedure with the inherent possibility of both false negative and false positive results. Results should be interpreted in the context of historic and current clinical findings. Reliability of the PAP Test is enhanced by performing the test on a regular repetitive basis. CONTINUED ON NEXT PAGE ----- ------- Name: Kelley Ham Age/Sex: 64/F : 1960 Unit#: [id number] Attend Dr: Michelle Samano MD Re12/14/24 Status: DEP REF Location: HO.HHCLNP Disch: ----- ------- SPEC : [id number] RECD: 12/15/24 STATUS: NARENDRA BARGERJigna NUM: [id number] FELICITA: 12/14/24-[address] [facility] [address]: Michelle Samano MD ENTERED: 12/15/24 SP TYPE: Pap Gosia ASHLEY DR: ORDERED: Pap Smear, PAP path review ----- ------- Signed (signature on file) Margo Romero MD 12/20/24 1732 ----- ------- END OF REPORT us Michelle Samano MD LAB CYTOLOGY ORDERABLES Final Result [facility] [address] [place] [phone] [phone] from Last 3 Months Insurance [facility] MEDIC[employer]AGE Care Teams Utility Bill Collector Relationship Specialty Start Date End Date Nasreen Salgado MD [address] [place] [address] [place] [address] PCP - General Family Medicine 11/24/24
--- OUTSIDE RECORDS SUMMARY | 2025-01-24 15:34 | XMS_ITS | Encounter Summary ---
Author Organization [employer] Address [address] [place] [address] Care Team Providers Care Mangle Press Catcher Name Role Phone Nasreen Salgado MD Primary Care Provider [phone] Encounter Details Date Type Department Care Team (Late st Contact Info) Description 12/15/[address] [facility] [address] [place], [place] [phone] Provider, MD Delmer Social History Tobacco Use [...] Description 01/27/2025 11:30 AM EDT Office Visit [facility] [address] [place] [address] Nasreen Salgado MD [address] [place] [address] documented as of this encounter Procedures Procedure [...] documented as of this encounter Care Teams Mangle Press Catcher Relationship Specialty Start Date End Date Nasreen Salgado MD [address] [place] [address] PCP - General Family Medicine 11/24/24 documented as of this encounter
== END 2025-01-24 13:53 | disposition home or self-care (01) ==
LOC: HO.MAMMO 13:52
PROVIDERS: PCP Student in an Organized Health Care Education/Training Program; Visit Provider Student in an Organized Health Care Education/Training Program
DX: Z12.31 Encounter for screening mammogram for malignant neoplasm of breast (principal)
CPT/HCPCS: 77063; 77067

== ENCOUNTER → 2025-01-24 14:15 | Outpatient (BNV) | payer MEDICARE, SELFPAY | PROVIDERS: PCP Student in an Organized Health Care Education/Training Program; Visit Provider Internal Medicine | DX: Z12.31 Encounter for screening mammogram for malignant neoplasm of breast (principal) | CPT/HCPCS: 77063; 77067 ==